=== PATIENT | female | born 1995 ===

== ENCOUNTER 2019-12-24 14:16 | Emergency (ER) | payer OTHER ==
[~2019-12-24] VITALS: Ht 165.1 cm; Wt 82.1 kg
== END 2019-12-24 18:33 | disposition home or self-care (01) ==
LOC: ER 14:16
DX: J32.0 Chronic maxillary sinusitis (principal)

== ENCOUNTER 2020-04-05 12:46 | Outpatient (CLI) | payer OTHER | END 2020-04-05 12:49 | disposition home or self-care (01) | LOC: RAD 12:46 | PROVIDERS: ATTEND Family Medicine | DX: M25.551 Pain in right hip (principal) ==

== ENCOUNTER 2020-10-21 08:08 | Outpatient (CLI) | payer OTHER | END 2020-10-21 08:13 | disposition home or self-care (01) | LOC: RAD 08:08 | PROVIDERS: ATTEND Family Medicine | DX: Z00.00 Encounter for general adult medical examination without abnormal findings (principal) ==